=== PATIENT | male | born 1940 | race Caucasian/White ===

== ENCOUNTER 2017-12-25 14:27 | Outpatient (CLI) | payer MEDICARE, BC ==
--- NOTE | 2017-12-25 15:45 | BD ---
Exam: DEXA Bone Density 12/25/17 HISTORY: 77-year-old male with osteopenia and low bone density. FINDINGS: Lumbar Spine: BMD (g/cm2) T-Score: L1 0.988 -1.6 L2 0.893 -1.3 L3 0.971 -1.2 L4 0.948 -1.3 L1-L4 0.929 -1.5 Femoral Neck: 0.752 -1.3 Total Proximal Femur: 0.926 -0.7 Impression: Osteopenia. This patient's ten year WHO fracture risk of a major osteoporotic fracture is 6.3% and hip fracture 1 .7%. POS: [facility]
== END 2017-12-25 14:28 | disposition home or self-care (01) ==
LOC: BICMAMMO 14:27
PROVIDERS: ATTEND Specialist
DX: M00-M99 Diseases of the musculoskeletal system and connective tissue (principal); M85.89 Other specified disorders of bone density and structure, multiple sites
CPT/HCPCS: 77080